=== PATIENT | male | born 1995 | race Caucasian/White ===

== ENCOUNTER 2017-05-06 15:28 | Emergency (ER) | payer OTHER ==
[~2017-05-06] VITALS: Ht 170.2 cm; Wt 83.5 kg
[~2017-05-06 15:28] MED LIST: HYDR-3498 PO; IBUP-1542 PO
[2017-05-06 15:45] VITALS: Ht 170.2 cm; Wt 83.5 kg
--- NOTE | 2017-05-06 17:24 | RADRPT ---
PROCEDURE: US Lower extremity Venous. CLINICAL INDICATION: Pain and swelling TECHNIQUE: Multiple sonographic images of the bilateral lower extremity deep venous system was obt ained utilizing grayscale, color-flow, compressive sonography and doppler imaging with augmentation. The images were reviewed on a PACS workstation. COMPARISON: None. FINDINGS: There is normal compressibility and flow within the bilateral common femoral, deep femoral, superfic ial femoral and popliteal veins. Normal respiratory variation and augmentation is seen. There is normal color flow and compressibility of bilateral posterior tibial and peroneal veins IMPRESSION: No sonographic evidence for bilateral lower extremity deep venous thrombosis. RPTAT: HH .Lazaro Samuels MD, MD Date Time Electronically viewed and signed by .Lazaro Samuels MD, on 05/06/2017 17:24 .W/
[2017-05-06] MEDS ORDERED: IBUP-1542 PO (17:39)
--- NOTE | 2017-05-06 17:46 | ERD ---
ER Documentation Chief Complaint Date/Time DATE: 05/06/17 TIME: 17:43 Chief Complaint bilateral leg pain for 1.5 years, sent by pmd to r/o dvt HPI This is a 21-year-old male presents to the ER for bilateral calf pain for the last year and a half. Patient states that calf pain is intermittent and worse whenever he rides his skateboard for a long time and then tries to dorsiflex his foot. Patient denies any recent travel he denies any recent surgeries he does not smoke. There is no redness or swelling to his calves. Patient went to his primary care doctor and was told to try ibuprofen and muscle relaxants, however they have not worked, his PCP sent him to rule out DVTs. Patient denies any chest pain or shortness of breath. ROS 12 point review of systems was done, all negative except per HPI. Medications Home Meds Active Scripts Ibuprofen* (Motrin*) 600 Mg Tab, 600 MG PO Q6, #30 TAB Prov:RAJNI RAMIREZ 05/06/17 Hydrocodone Bit-Acetaminophen* ([place]*) 5-325 Mg Tab, 1 TAB PO Q6 Y for PAIN, # 20 TAB Prov:TOMASA MUSE PA-C 03/26/16 Ibuprofen* (Ibuprofen*) 600 Mg Tablet, 600 MG PO Q6, #30 TAB Prov:TOMASA MUSE PA-C 03/26/16 Allergies Allergies: Coded Allergies: Penicillins (Verified Allergy, Unknown, pt didn't know, 03/26/16) PMhx/Soc History of Surgery: No Anesthesia Reaction: No Hx Neurological Disorder: No Hx Respiratory Disorders: Yes (Acute Bronchitis) Hx Cardiac Disorders: No Hx Psychiatric Problems: No Hx Miscellaneous Medical Probl: Yes (Fall) Hx Alcohol Use: No Hx Substance Use: No Hx Tobacco Use: Yes (7 sticks/day) Physical Exam Vitals Vital Signs Date Time Temp Pulse Resp B/P Pulse Ox O2 Delivery O2 Flow Rate FiO2 05/06/17 15:45 98.1 87 18 138/89 100 Physical Exam GENERAL: The patient is well developed and appropriate for usual state of health , in no apparent distress. HEENT: Atraumatic CHEST: Clear to auscultation bilaterally. There are no rales, wheezes or rhonchi. HEART: Regular rate and rhythm. No murmurs, clicks, rubs or gallops. EXTREMITIES: Equal pulses bilaterally. There is no peripheral clubbing, cyanosis or edema. No focal swelling or erythema. Full range of motion. Grossly neurovascularly intact. No calf swelling, erythema or warmth to the touch. Full range of motion of bilateral lower extremities. +2 pedal pulses. Negative Homans sign bilaterally. NEURO: Alert and oriented. Procedures/MDM This is a 21-year-old male presents to the ER with a year and a half history of bilateral calf pain which occurs after riding his skateboard for long periods of time and only when he is dorsiflexing his foot. This is likely muscular pain. Suspicion for DVT is low. Ultrasound was done and it was negative. He does not have any redness or swelling of the area. Patient has had this pain for over a year, likely not acute in etiology. Patient will be sent with ibuprofen. He is to follow-up with his primary care doctor within 1-2 days return to ER sooner if symptoms worsen. My medical decision making was shared with the patient he understands and agrees with plan. Departure Diagnosis: Primary Impression: Bilateral leg pain Condition: Stable Patient Instructions: Possible Causes of Low Back or Leg Pain Additional Instructions: Call your primary care doctor TOMORROW for an appointment during the next 1-2 days.See the doctor sooner or return here if your condition worsens before your appointment time. RAJNI RAMIREZ May 06, 2017 17:46
[2017-05-06 17:52] VITALS: BP 136/87; PULSE 72; RESP 16; TEMP 98.4
== END 2017-05-06 17:52 | disposition home or self-care (01) ==
LOC: FTE 15:28
DX: M79.604 Pain in right leg (principal); M79.605 Pain in left leg; F17.210 Nicotine dependence, cigarettes, uncomplicated
CPT/HCPCS: 93970; Z7502